=== PATIENT | female | born 1965 | race African-American/Black ===

== ENCOUNTER 2021-02-10 21:52 | Inpatient (IN) | payer MEDICAID, OTHER ==
[~2021-02-10] VITALS: Ht 167.6 cm; Wt 108.9 kg
[2021-02-11] MEDS ORDERED: DOXY100C2 MT (01:12)
[2021-02-11] MEDS ORDERED: DOXYCYCLINE HYCLATE 100MG CAPSULE PO ONE (01:15)
[2021-02-11] MEDS ORDERED: DEXAMETHASONE 4MG/ML 1ML VIAL IV ONE (01:30)
[2021-02-11 01:40] LABS: BASOPHILS % 0.2 % (0.0-2.0); EOSINOPHILS % 0.1 % (0.0-5.0); HEMATOCRIT. 31.2 % (36.0-48.0); HEMOGLOBIN. 10.1 g/dL (12.0-16.0); LYMPHOCYTES % 27.1 % (20.0-50.0); MEAN CORPUSCULAR HEMOGLOBIN 29.4 pg (28.0-32.0); MEAN CORPUSCULAR VOLUME 90.8 fL (81.0-99.0); MEAN PLATELET VOLUME 7.7 fl (7.4-10.4); MONOCYTES % 8.4 % (2.0-8.0); NEUTROPHILS % 64.2 % (40.0-76.0); PLATELET 246 x1000/uL (130-400); RED BLOOD CELL COUNT 3.43 mill/uL (4.2-5.4); RED CELL DISTRIBUTION WIDTH 13.2 % (11.6-14.6)
[2021-02-11 01:46] LABS: CHLORIDE 109 mEq/L (98-107)
[2021-02-11] MEDS ORDERED: CLONIDINE 0.1MG TABLET PO PRN (08:30)
[2021-02-11] MEDS ORDERED: ENOXAPARIN 40MG/0.4ML SYR SUBCUT SCH (08:30)
[2021-02-11] MEDS ORDERED: DIPHENHYDRAMINE 50MG/ML VIAL IV PRN (08:30)
[2021-02-11] MEDS ORDERED: ONDANSETRON HCL 4MG/2ML INJ IV PRN (08:30)
[2021-02-11] MEDS ORDERED: AZITHROMYCIN 500 MG in DEXT 5% WATER 250 ML IV SCH (09:00)
[2021-02-11] MEDS ORDERED: CEFTRIAXONE 1 G PREMIX 50 ML IV SCH (09:00)
[2021-02-11] MEDS: ENOXAPARIN 30MG/0.3ML SYR SUBCUT SCH ×2 (09:16→20:58)
[2021-02-11 13:00] VITALS: BP 128/78
[2021-02-11] MEDS ORDERED: OMEP20CA14 MT (13:29)
[2021-02-11 16:00] VITALS: BP 120/74
[2021-02-11] MEDS: ACETAMINOPHEN 325MG TABLET PO PRN (18:47)
[2021-02-11 20:00] VITALS: BP 113/64
[2021-02-12] VITALS: BP 110/68
[2021-02-12 04:00] VITALS: BP 124/61
[2021-02-12 06:02] LABS: CHLORIDE 110 mEq/L (98-107)
[2021-02-12 06:09] LABS: LDL CHOLESTEROL 80 mg/dL (5-100)
[2021-02-12 06:12] LABS: HDL CHOLESTEROL 59 mg/dL (40-59)
[2021-02-12 06:21] LABS: BASOPHILS % 0.1 % (0.0-2.0); HEMATOCRIT. 32.2 % (36.0-48.0); HEMOGLOBIN. 10.4 g/dL (12.0-16.0); LYMPHOCYTES % 15.4 % (20.0-50.0); MEAN CORPUSCULAR HEMOGLOBIN 29.2 pg (28.0-32.0); MEAN CORPUSCULAR VOLUME 90.3 fL (81.0-99.0); MEAN PLATELET VOLUME 8.8 fl (7.4-10.4); MONOCYTES % 10.3 % (2.0-8.0); NEUTROPHILS % 74.2 % (40.0-76.0); PLATELET 299 x1000/uL (130-400); RED BLOOD CELL COUNT 3.56 mill/uL (4.2-5.4); RED CELL DISTRIBUTION WIDTH 13.1 % (11.6-14.6)
[2021-02-12 08:00] VITALS: BP 114/66
[2021-02-12] MEDS: AZITHROMYCIN 500 MG in DEXT 5% WATER 250 ML IV SCH (08:37)
[2021-02-12] MEDS: CEFTRIAXONE 1,000 MG in DEXTROSE 5% WATER 50 ML IV SCH (08:37)
[2021-02-12] MEDS: OMEPRAZOLE 20MG CAPSULE EXTENDED RELEASE PO SCH (08:52)
[2021-02-12] MEDS: ENOXAPARIN 30MG/0.3ML SYR SUBCUT SCH ×2 (08:53→20:39)
[2021-02-12 12:00] VITALS: BP 104/58
[2021-02-12 16:00] VITALS: BP 99/52
[2021-02-12] MEDS: ACETAMINOPHEN 325MG TABLET PO PRN ×2 (16:13→20:40)
[2021-02-12 20:00] VITALS: BP 95/43
[2021-02-13] VITALS: BP 110/64
[2021-02-13 04:00] VITALS: BP 114/59
[2021-02-13 07:20] LABS: BASOPHILS % 0.2 % (0.0-2.0); EOSINOPHILS % 0.1 % (0.0-5.0); HEMATOCRIT. 30.4 % (36.0-48.0); HEMOGLOBIN. 9.7 g/dL (12.0-16.0); LYMPHOCYTES % 34.8 % (20.0-50.0); MEAN CORPUSCULAR HEMOGLOBIN 28.9 pg (28.0-32.0); MEAN CORPUSCULAR VOLUME 90.4 fL (81.0-99.0); MEAN PLATELET VOLUME 7.7 fl (7.4-10.4); MONOCYTES % 12.6 % (2.0-8.0); NEUTROPHILS % 52.3 % (40.0-76.0); PLATELET 361 x1000/uL (130-400); RED BLOOD CELL COUNT 3.36 mill/uL (4.2-5.4); RED CELL DISTRIBUTION WIDTH 13.3 % (11.6-14.6)
[2021-02-13 07:54] LABS: CHLORIDE 110 mEq/L (98-107)
[2021-02-13 08:00] VITALS: BP 109/59
[2021-02-13] MEDS: CEFTRIAXONE 1,000 MG in DEXTROSE 5% WATER 50 ML IV SCH (08:45)
[2021-02-13] MEDS: AZITHROMYCIN 500 MG in DEXT 5% WATER 250 ML IV SCH (08:45)
[2021-02-13] MEDS: ENOXAPARIN 30MG/0.3ML SYR SUBCUT SCH ×2 (08:45→21:04)
[2021-02-13] MEDS: OMEPRAZOLE 20MG CAPSULE EXTENDED RELEASE PO SCH (08:45)
[2021-02-13] MEDS: ACETAMINOPHEN 325MG TABLET PO PRN ×2 (10:36→19:09)
[2021-02-13 12:03] VITALS: BP 113/57
[2021-02-13 15:34] VITALS: BP 95/48
[2021-02-13 20:00] VITALS: BP 117/55
[2021-02-14] VITALS: BP 99/43
[2021-02-14 04:00] VITALS: BP 112/43
[2021-02-14 07:26] LABS: CHLORIDE 109 mEq/L (98-107)
[2021-02-14 07:28] LABS: BASOPHILS % 0.2 % (0.0-2.0); EOSINOPHILS % 0.4 % (0.0-5.0); HEMATOCRIT. 31.8 % (36.0-48.0); LYMPHOCYTES % 47.8 % (20.0-50.0); MEAN CORPUSCULAR HEMOGLOBIN 28.5 pg (28.0-32.0); MEAN CORPUSCULAR VOLUME 91.1 fL (81.0-99.0); MEAN PLATELET VOLUME 8.1 fl (7.4-10.4); MONOCYTES % 14.7 % (2.0-8.0); NEUTROPHILS % 36.9 % (40.0-76.0); PLATELET 374 x1000/uL (130-400); RED BLOOD CELL COUNT 3.49 mill/uL (4.2-5.4); RED CELL DISTRIBUTION WIDTH 13.1 % (11.6-14.6)
[2021-02-14 08:00] VITALS: BP 106/59
[2021-02-14] MEDS: ENOXAPARIN 30MG/0.3ML SYR SUBCUT SCH ×2 (08:54→21:31)
[2021-02-14] MEDS: AZITHROMYCIN 500 MG in DEXT 5% WATER 250 ML IV SCH (08:55)
[2021-02-14] MEDS: CEFTRIAXONE 1,000 MG in DEXTROSE 5% WATER 50 ML IV SCH (08:55)
[2021-02-14] MEDS: OMEPRAZOLE 20MG CAPSULE EXTENDED RELEASE PO SCH (08:55)
[2021-02-14] MEDS: ACETAMINOPHEN 325MG TABLET PO PRN ×2 (08:56→19:45)
[2021-02-14 12:00] VITALS: BP 133/62
[2021-02-14 16:00] VITALS: BP 111/53
[2021-02-14 20:00] VITALS: BP 108/66
[2021-02-15] VITALS: BP 104/68
[2021-02-15 04:00] VITALS: BP 115/67
[2021-02-15 07:29] LABS: BASOPHILS % 0.4 % (0.0-2.0); EOSINOPHILS % 1.8 % (0.0-5.0); HEMATOCRIT. 34.1 % (36.0-48.0); HEMOGLOBIN. 10.8 g/dL (12.0-16.0); LYMPHOCYTES % 42.9 % (20.0-50.0); MEAN CORPUSCULAR HEMOGLOBIN 28.8 pg (28.0-32.0); MEAN CORPUSCULAR VOLUME 91.1 fL (81.0-99.0); MEAN PLATELET VOLUME 7.8 fl (7.4-10.4); MONOCYTES % 11.6 % (2.0-8.0); NEUTROPHILS % 43.3 % (40.0-76.0); PLATELET 472 x1000/uL (130-400); RED BLOOD CELL COUNT 3.74 mill/uL (4.2-5.4); RED CELL DISTRIBUTION WIDTH 13.3 % (11.6-14.6)
[2021-02-15 07:47] LABS: CHLORIDE 108 mEq/L (98-107)
[2021-02-15 08:00] VITALS: BP 111/62
[2021-02-15] MEDS: ENOXAPARIN 30MG/0.3ML SYR SUBCUT SCH ×2 (08:16→20:27)
[2021-02-15] MEDS: FAMOTIDINE 20MG TABLET PO SCH ×2 (08:17→20:27)
[2021-02-15] MEDS: CEFTRIAXONE 1,000 MG in DEXTROSE 5% WATER 50 ML IV SCH (08:17)
[2021-02-15] MEDS ORDERED: AZITHROMYCIN 500 MG TABLET PO SCH (09:00)
[2021-02-15] MEDS: ACETAMINOPHEN 325MG TABLET PO PRN (11:44)
[2021-02-15 12:00] VITALS: BP 95/54
[2021-02-15 16:00] VITALS: BP 109/60
[2021-02-15 20:00] VITALS: BP 123/74
[2021-02-16] VITALS: BP 96/52
[2021-02-16 04:00] VITALS: BP 109/59
[2021-02-16 08:05] VITALS: BP 110/66
[2021-02-16] MEDS: FAMOTIDINE 20MG TABLET PO SCH (08:26)
[2021-02-16] MEDS: ENOXAPARIN 30MG/0.3ML SYR SUBCUT SCH (08:27)
[2021-02-16 08:42] LABS: BASOPHILS % 0.2 % (0.0-2.0); EOSINOPHILS % 3.3 % (0.0-5.0); HEMATOCRIT. 32.8 % (36.0-48.0); HEMOGLOBIN. 10.4 g/dL (12.0-16.0); MEAN CORPUSCULAR HEMOGLOBIN 28.9 pg (28.0-32.0); MEAN CORPUSCULAR VOLUME 90.8 fL (81.0-99.0); MEAN PLATELET VOLUME 7.8 fl (7.4-10.4); MONOCYTES % 9.9 % (2.0-8.0); NEUTROPHILS % 51.6 % (40.0-76.0); PLATELET 504 x1000/uL (130-400); RED BLOOD CELL COUNT 3.61 mill/uL (4.2-5.4); RED CELL DISTRIBUTION WIDTH 13.3 % (11.6-14.6)
[2021-02-16 08:55] LABS: CHLORIDE 108 mEq/L (98-107)
[2021-02-16 12:00] VITALS: BP 111/66
[2021-02-16] MEDS: ACETAMINOPHEN 325MG TABLET PO PRN (13:18)
[2021-02-16] MEDS ORDERED: DEXA6TAB MT (15:40)
[2021-02-16 16:00] VITALS: BP 105/56
[2021-02-16 16:13] VITALS: BP 105/56
== END 2021-02-16 17:40 | disposition home or self-care (01) | DRG 137 ==
LOC: ER 21:52 → MICUSO 02-11 02:17 → 7WST 02-11 10:58
PROVIDERS: ADMIT Internal Medicine; ATTEND Internal Medicine
DX: U07.1 COVID-19 (principal); J96.01 Acute respiratory failure with hypoxia; J12.82 Pneumonia due to coronavirus disease 2019; E66.9 Obesity, unspecified; K21.9 Gastro-esophageal reflux disease without esophagitis; Z90.49 Acquired absence of other specified parts of digestive tract; Z68.38 Body mass index [BMI] 38.0-38.9, adult
CPT/HCPCS: 36415; 71045; 80048; 80053; 80061; 82728; 83615; 83880; 84145; 84443; 84484; 85025; 86141; 93005; 99285; C1893; J0456; J0696; J1100; J1650; J2405; J7060; U0003; U0005